=== PATIENT | female | born 1980 | race African-American/Black ===

== ENCOUNTER 2020-04-11 10:19 | Emergency (ER) | payer OTHER ==
[~2020-04-11] VITALS: Ht 152.4 cm; Wt 79.4 kg
[2020-04-11] MEDS ORDERED: ABILIFY15 MG PO (10:35)
[2020-04-11] MEDS ORDERED: SEROQUEL 50 MG50 MG PO (10:36)
[2020-04-11 10:49] LABS: ABSOLUTE NEUTROPHILS 1.8 thou/uL (1.4-8.2); BASOPHILS 1.3 % (0.0-2.0); EOSINOPHILS 3.2 % (0.0-3.0); HEMATOCRIT 43.7 % (37.0-47.0); HEMOGLOBIN 14.9 gm/dL (12.0-15.0); LYMPHOCYTES 46.3 % (24.0-44.0); MCH 31.4 pg (26.0-34.0); MCHC 34.1 g/dL (28.0-37.0); MCV 92.1 fL (80.0-100.0); MONOCYTES 8.3 % (1.0-8.0); PLATELET COUNT 312 thou/uL (150-400); POLYS 40.9 % (36.0-66.0); RBC 4.74 mil/uL (4.20-5.00); RDW 13.8 % (10.5-14.5); WBC 4.5 thou/uL (4.0-11.0)
[2020-04-11 10:53] LABS: ANION GAP 7 mmol/L (7-16); BUN 11 mg/dL (7-18); CALCIUM 8.8 mg/dL (8.5-10.1); CHLORIDE 102 mmol/L (98-107); CO2 29 mmol/L (21-32); CREATININE 0.8 mg/dL (0.6-1.0); GLUCOSE 99 mg/dL (74-106); POTASSIUM 4.2 mmol/L (3.5-5.1); SODIUM 138 mmol/L (136-145)
[2020-04-11 11:03] LABS: ALBUMIN 4.3 g/dL (3.4-5.0); SGOT 17 U/L (15-37); SGPT 33 U/L (30-65); TOTAL BILIRUBIN 0.2 mg/dL (<0.1-1.0); TROPONIN-I <0.06 ng/mL (<0.06)
[2020-04-11 12:02] VITALS: BP 112/70
--- NOTE | 2020-04-14 07:50 | EKG ---
[facility] [place] [address] ELECTROCARDIOGRAM REPORT Name: TREY KPALAN [id number] Admission: 04/11/20 Attend Phys: Discharge: 04/11/20 Date of : 76 Report #: [id number] THIS REPORT FOR: cc: ELLIE - Urszula family physician/PCP ELLIE - Urszula family physician/PCP Drew Astorga MD [facility] THIS REPORT FOR: //name// [facility] ED Test Date: 2020-04-11 Test Time: 10:22:19 Pat Name: TREY KAPLAN Department: Room: Gender: F Burlapper: [facility] : 1980 Requested By: Fritz Chaudhary Order Number: [id number] MD: Drew Astorga Measurements Intervals [place] Rate: 64 P: 31 [place]: 176 QRS: 64 QRSD: 89 T: 50 QT: 399 QTc: 412 Interpretive Statements Sinus rhythm Probable left ventricular hypertrophy No previous ECG available for comparison Electronically Signed On 04-14-2020 7:48:49 CDT by Drew Astorga [email or web address] <ELECTRONICALLY SIGNED> By: Drew Astorga MD, [facility] 04/14/20 0748 1022 1022 Drew Astorga MD, [facility] /EPI
== END 2020-04-11 12:02 | disposition home or self-care (01) ==
LOC: ER 10:19
PROVIDERS: Emergency Medicine
DX: R07.89 Other chest pain (principal); F31.9 Bipolar disorder, unspecified; F17.210 Nicotine dependence, cigarettes, uncomplicated